=== PATIENT | female | born 1960 | race Caucasian/White ===

== ENCOUNTER 2025-05-24 10:21 | Outpatient (CLI) | payer MEDICARE, BC ==
[~2025-05-24 10:21] MED LIST: ALPR-623 PO; IBUP-1984 PO; SERT50TA PO; SYN0.088T PO
--- NOTE | 2025-05-24 13:21 | RADIOLOGY REPORT ---
CLINICAL INDICATION: PAIN IN RIGHT SHOULDER COMPARISON: None TECHNIQUE: Multiplanar, multisequence MRI of the right shoulder was performed without contrast. Contrast: None FINDINGS: Glenohumeral joint: There is no fracture or bone marrow edema. Alignment is maintained. There is severe glenohumeral joint space narrowing with bulky osteophytes. There is complete loss of the articular cartilage of the both sides of the joint with subchondral cysts in the humeral head. There is small glenohumeral joint effusion. Mild synovitis. An ossified loose body in the axillary recess measuring 1.4 cm. Acromioclavicular joint: The acromioclavicular joint is narrowed with capsular hypertrophy. There is a type 1 acromion. Rotator cuff and bursae: There is severe supraspinatus tendinosis and a diminutive appearance of the tendon consistent with attrition. There is an interstitial tear. There is infraspinatus tendinosis without tear. Severe subscapularis tendinosis and partial tear involving the cranial most fibers. Th e teres minor tendon is intact. There is no regional muscle atrophy. There is fluid in the subacromial subdeltoid bursa. Biceps tendon and glenoid labrum: There is severe tendinosis involving the intracapsular portion of the tendon and likely superimposed tear. The labrum is completely degenerated and chronically torn involving all segments of the labrum. IMPRESSION: 1. Severe right glenohumeral joint osteoarthritis. 2. Severe supraspinatus tendinosis and interstitial tear. 3. Severe subscapularis tendinosis and partial tear involving the cranial most fibers. 4. Severe acromioclavicular joint osteoarthritis. 5. Severe tendinosis of the intracapsular portion of the biceps tendon and likely superimposed tear. 6. Complete labral degeneration and chronic tear.
== END 2025-05-24 23:59 | disposition home or self-care (01) ==
LOC: MRI02 10:21
PROVIDERS: ATTEND Specialist
DX: S43.431A Superior glenoid labrum lesion of right shoulder, initial encounter (principal); M25.511 Pain in right shoulder; M75.101 Unspecified rotator cuff tear or rupture of right shoulder, not specified as traumatic; M19.011 Primary osteoarthritis, right shoulder; X58.XXXA Exposure to other specified factors, initial encounter; Y93.9 Activity, unspecified; Y92.89 Other specified places as the place of occurrence of the external cause; Y99.8 Other external cause status
CPT/HCPCS: 73221